=== PATIENT | male | born 2000 | race Caucasian/White ===

== ENCOUNTER 2021-05-17 17:34 | Emergency (ER) | payer OTHER ==
[~2021-05-17] VITALS: Ht 180 cm; Wt 86.1 kg
[2021-05-17 17:59] LABS: BILIRUBIN,URINE NEGATIVE (NEGATIVE); CLARITY,URINE CLEAR; COLOR,URINE YELLOW; GLUCOSE, URINE (UA) NEGATIVE (NEGATIVE); KETONES,URINE NEGATIVE (NEGATIVE); LEUKOCYTE ESTERASE ,URINE NEGATIVE (NEGATIVE); NITRITE,URINE NEGATIVE (NEGATIVE); PROTEIN,URINE NEGATIVE (NEGATIVE)
[2021-05-17 18:11] LABS: BACTERIA,URINE NEGATIVE /HPF
[2021-05-17 18:12] LABS: RENAL EPITHELIAL CELLS,URINE RARE /HPF; SQUAMOUS EPITHELIAL CELL,UR 0-2 /HPF
--- NOTE | 2021-05-17 18:13 | ED General ---
General Chief Complaint: Abdominal/GI Problems Stated Complaint: ABD PAIN,UMBILICAL AREA Nursing Triage Note: Patient ambulatory to ER with father with c/o right groin/pelvic pain after lifting weights on Wednesday. Pt states the pain is aching if he is sitting or lying down but when he gets up and moves it becomes a sharp pain. Source of Information: Patient Exam Limitations: No Limitations History of Present Illness Date Seen by Provider: May 17, 2021 Time Seen by Provider: 17:37 Initial Comments This 20-year-old young man presents to the emergency room with right lower quadrant pain superior to the inguinal ligament that developed suddenly while he was doing lifting on May 12. Since then he has had pain with walking and any activity in which he tenses his abdominal muscles or flexes his thigh anteriorly. He does not have pain when he is completely at rest. He denies any nausea, vomiting, diarrhea, hematuria, or tenderness to percussion. There is no pain with passive range of motion of the thigh but there is pain with active range of motion. 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 Allergies and Home Medications Patient Home Medication List Home Medication List Reviewed: Yes Review of Systems Review of Systems Constitutional: no symptoms reported EENTM: no symptoms reported Respiratory: no symptoms reported Cardiovascular: no symptoms reported Gastrointestinal: see HPI Genitourinary: no symptoms reported Musculoskeletal: see HPI Skin: no symptoms reported Psychiatric/Neurological: No Symptoms Reported Hematologic/Lymphatic: No Symptoms Reported Past Mvrvecq-Pawyog-Lgunkh Hx Patient Social History Tobacco Use?: No Smoking Status: Never a Smoker Smokeless Tobacco Frequency: Never a User Use of E-Cig and/or Vaping dev: No Use of E-Cig and/or Vaping Bandar: Never a User Substance use?: No Alcohol Use?: No Pt feels they are or have been: No Seasonal Allergies Seasonal Allergies: No Past Medical History Surgery/Hospitalization HX: right foot surgery, no medical history Surgeries: Yes Orthopedic (Lynn fracture) Respiratory: No Cardiac: No Neurological: No Genitourinary: No Gastrointestinal: No Musculoskeletal: No Endocrine: No HEENT: No Cancer: No Psychosocial: No Integumentary: No Physical Exam Vital Signs Vital Signs - First Documented 05/17/21 17:42 Temp 36.0 Pulse 59 Resp 14 B/P (MAP) 138/82 (100) Pulse Ox 97 O2 Delivery Room Air Capillary Refill : Less Than 3 Seconds Height, Weight, BMI Height: '" Weight: lbs. oz. kg; 26.00 BMI Method: General Appearance: No Apparent Distress, WD/WN HEENT: Normal ENT Inspection Neck: Normal Inspection Respiratory: Lungs Clear, Normal Breath Sounds, No Accessory Muscle Use Cardiovascular: Regular Rate, Rhythm, No Edema, No Murmur Gastrointestinal: Normal Bowel Sounds, Soft, Tenderness (Right lower quadrant just superior to the inguinal ligament. No tenderness to percussion. Inguinal ligament and canal are nontender. No bulges or abdominal wall weakening is identified by palpation with Valsalva.) Genital/Rectal: Normal Genital Exam, Other (No inguinal hernia detected on Valsalva) Extremity: Normal Inspection, Non Tender, Other (There is pain in the right lower quadrant with active flexion of the right thigh. No pain with passive range of motion in the thigh or with rotation of the hip. Distal exam is unremarkable. Positive pedal pulses and brisk capillary refill. Sensation intact. Normal ambulation observed.) Neurologic/Psychiatric: Alert, Oriented x3, No Motor/Sensory Deficits, Normal Mood/Affect, iron cutter II-XII Norm as Tested Skin: Normal Color, Warm/Dry Progress/Results/Core Measures Suspected Sepsis SIRS Temperature: Pulse: 59 Respiratory Rate: 14 Blood Pressure 138 /82 Mean: 100 Results/Orders Lab Results Laboratory Tests Test 05/17/21 17:50 Range/Units Urine Color YELLOW Urine Clarity CLEAR Urine pH 7.0 5-9 Urine Specific [place] 1.015 L 1.016-1.022 Urine Protein NEGATIVE NEGATIVE Urine Glucose (UA) NEGATIVE NEGATIVE Urine Ketones NEGATIVE NEGATIVE Urine Nitrite NEGATIVE NEGATIVE Urine Bilirubin NEGATIVE NEGATIVE Urine Urobilinogen 0.2 < = 1.0 MG/DL Urine Leukocyte Esterase NEGATIVE NEGATIVE Urine RBC (Auto) NEGATIVE NEGATIVE Urine RBC NONE /HPF Urine WBC NONE /HPF Urine Squamous Epithelial Cells 0-2 /HPF Urine Renal Epithelial Cells RARE /HPF Urine Crystals NONE /LPF Urine Bacteria NEGATIVE /HPF Urine Casts NONE /LPF Urine Mucus NEGATIVE /LPF Urine Culture Indicated NO Vital Signs/I&O 05/17/21 05/17/21 17:42 18:50 Temp 36.0 36.0 Pulse 59 59 Resp 14 14 B/P (MAP) 138/82 (100) 138/82 Pulse Ox 97 97 O2 Delivery Room Air Room Air Capillary Refill : Less Than 3 Seconds Blood Pressure Mean: 100 Progress Note : Progress Note There is suspicion of a psoas or iliopsoas muscle strain versus right lower abdominal wall muscle strain. See discharge instructions for further discussion. Departure Impression Primary Impression: Muscle strain Additional Impression: RLQ abdominal pain Disposition: 01 HOME, SELF-CARE Condition: Stable Departure-Patient Inst. Decision time for Depature: 18:39 Referrals: NO,LOCAL PHYSICIAN (PCP) Primary Care Physician KIMMIE GAR MD Patient Instructions: Abdominal Muscle Strain, Muscle Strain Add. Discharge Instructions: The exact cause of your right lower abdominal pain is uncertain but may relate to a lower abdominal muscle strain or a strain of the psoas or iliopsoas muscle. For primary pain management you may apply ice if that is helpful in 20-minute intervals. You may also use ibuprofen up to 600 mg every 6 hours as needed. Add Tylenol (acetaminophen) up to 1000 mg every 6 hours if additional pain management is desired. Work with your applications trainer to rehab this injury and work on stretches or other interventions that may speed recovery. In the meantime, avoid any activities that worsen the pain, especially intense activities or high velocity activities. Return to the emergency room if you develop nonmusculoskeletal symptoms such as vomiting, diarrhea, urinating blood, fevers, or uncontrolled pain. Referral to an orthopedic surgeon such as Dr. Gar may also be appropriate for a specialist opinion on this injury. No hernia was detected on your exam today. However, if suspicion of hernia persists further evaluation could be performed with ultrasound or CT scan at the direction of your primary care doctor or an orthopedic provider. Call with questions or concerns. Return to care if you have any other urgent problems or concerns. All discharge instructions reviewed with patient and/or family. Voiced understanding. SUHAIL WRIGHT MD May 17, 2021 18:13
[2021-05-17 18:50] VITALS: BP 138/82
== END 2021-05-17 18:51 | disposition home or self-care (01) ==
LOC: ER 17:38
DX: S76.911A Strain of unspecified muscles, fascia and tendons at thigh level, right thigh, initial encounter (principal); R10.31 Right lower quadrant pain; X50.0XXA Overexertion from strenuous movement or load, initial encounter
CPT/HCPCS: 81000; 99282